=== PATIENT | male | born 1980 | race Caucasian/White ===

== ENCOUNTER 2017-11-30 01:23 | Emergency (ER) | payer SELFPAY ==
[~2017-11-30] VITALS: Ht 177.8 cm; Wt 65.4 kg
[2017-11-30] MEDS ORDERED: MOTRIN600 MG PO (02:08)
[2017-11-30] MEDS ORDERED: AMOXICILLIN500 MG PO (02:08)
[2017-11-30 02:23] VITALS: BP 145/101
== END 2017-11-30 02:23 | disposition home or self-care (01) ==
LOC: EME 01:23
DX: H66.92 Otitis media, unspecified, left ear (principal); I10 Essential (primary) hypertension; Z87.891 Personal history of nicotine dependence
CPT/HCPCS: 99281; 99284